=== PATIENT | male | born 1960 | race Caucasian/White ===

== ENCOUNTER → 2017-01-21 | Outpatient (CLI) | payer OTHER ==
--- NOTE | ~2017-01-21 | US135 ---
[facility] A Service of [facility] & [facility] RADIOLOGY TEXT RESULTS PATIENT: NICOLE ANDERSON JR LOCATION: CNIV : 56 UNIT #: [id number] AGE: [address]: Shelley Faith SEX: M ORDER DR: [id number] [facility] [address] [place], [place] [address] [id number] O MR#: [id number] Acc #: [id number] NAME: NICOLE ANDERSON : 1960 SEX: M STUDY DATE/TIME: 01/21/2017 9:54 UNIT: CNIV ROOM: STUDY DESCRIPTION: US U/L Ext Art Study Comp Madan Attending Physician: Shelley Faith A.P.R.N. Referring Physician: Shelley Faith A.P.R.N. Ordering Physician: Shelley Faith A.P.R.N. Primary Care Physician: [facility] MEDICAL IMAGING REPORT This report is preliminary unless electronic signature is present EXAM Lower extremity arterial segmental pressures, 01/21/2017. HISTORY Peripheral artery disease. FINDINGS The right brachial pressure is 149, and the left brachial pressure is 138. The right upper thigh pressure is 149, lower thigh 126, calf 100, dorsalis pedis 85, posterior tibial 94, and toe 58, for an ankle-brachial index of 0.63. Toe-brachial index on the right is 0.39. The left upper thigh pressure is 139, lower thigh 131, calf 97, dorsalis pedis 93, posterior tibial 93, and toe 86, for an ankle-brachial index of 0.62. Toe-brachial index on the left is 0.58. Pulse volume recording tracings demonstrate damping of the signal from the calf level to the ankle level on both sides. IMPRESSION Moderate ischemia of both legs. Ankle-brachial index is 0.63 on the right and 0.62 on the left. 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 These results are not significantly changed, compared to the previous Doppler studies performed on 08/16/2015 when the ankle-brachial index was 0.64 on the right and 0.52 on the left. Dictated by... Fabio Poole M.D. [facility] A Service of [facility] RADIOLOGY TEXT RESULTS PATIENT: NICOLE ANDERSON JR LOCATION: CNIV : 56 UNIT #: [id number] AGE: [address]: Shelley Faith SEX: M ORDER DR: THIS IS AN ELECTRONICALLY VERIFIED REPORT Fabio Poole M.D. at 01/23/2017 7:41 AM ANUJA/alban TD: 01/21/2017 14:09 JOB #: [id number] MEDICAL IMAGING REPORT Page 1 of 1 COPY
--- NOTE | ~2017-01-21 | US37 ---
[facility] A Service of [facility] & [facility] RADIOLOGY TEXT RESULTS PATIENT: NICOLE ANDERSON JR LOCATION: CNIV : 56 UNIT #: [id number] AGE: [address]: Shelley Faith SEX: M ORDER DR: [id number] [facility] [address] [place], [place] [address] [id number] O MR#: [id number] Acc #: [id number] NAME: NICOLE ANDERSON : 1960 SEX: M STUDY DATE/TIME: 01/21/2017 10:20 UNIT: CNIV ROOM: STUDY DESCRIPTION: US Carotid W/Doppler Bilateral Attending Physician: Shelley Faith A.P.R.N. Referring Physician: Shelley Faith A.P.R.N. Ordering Physician: Shelley Faith A.P.R.N. Primary Care Physician: [facility] MEDICAL IMAGING REPORT This report is preliminary unless electronic signature is present EXAM Carotid duplex scan, 01/21/2017. HISTORY Carotid stenosis. Previous left carotid endarterectomy. FINDINGS The right common carotid artery has a small amount of heterogeneous dense plague. There is heterogeneous dense plaque in the right carotid bulb which extends upward in the proximal internal and external carotid arteries. Peak systolic velocity in the mid right internal carotid artery is 97 cm/second with an end-diastolic velocity of 28 cm/second. The ICA/CCA ratio on the right is 1.1. Peak systolic velocity in the right external carotid artery is 226 cm/second. The right vertebral artery is patent with antegrade flow. The left common carotid artery has a small amount of heterogeneous plaque proximal to the previous endarterectomy site. There is mild narrowing at the proximal end of the endarterectomy in the common carotid artery. The left carotid bulb is dilated consistent with previous surgery. The left internal carotid artery is small but there does not appear to be significant recurrent stenosis. There is stenosis at the origin of the external carotid artery by B-mode imaging. Peak systolic velocity in the proximal left internal carotid artery is 131 cm/second with an end-diastolic velocity of 16 cm/second. The ICA/CCA ratio on the left is 2.1. Peak systolic velocity in the left external carotid artery is 88 cm/second. The left vertebral artery is patent with antegrade flow. IMPRESSION A small amount of plaque, but no significant stenosis (less than 50%) in the right internal carotid artery. Significant stenosis of the right external carotid artery. No significant recurrent stenosis (less than STS. [facility] A Service of [facility] RADIOLOGY TEXT RESULTS PATIENT: NICOLE ANDERSON JR LOCATION: CNIV : 56 UNIT #: [id number] AGE: [address]: Shelley Faith SEX: M ORDER DR: 50%) in the left internal carotid artery. No significant stenosis of the left external carotid artery by velocity criteria but it does appear narrowed on B-mode imaging. Patent vertebral arteries bilaterally with antegrade flow. Dictated by... Fabio Poole M.D. THIS IS AN ELECTRONICALLY VERIFIED REPORT Fabio Poole M.D. at 01/23/2017 7:41 AM ANUJA/oliver TD: 01/21/2017 14:17 JOB #: [id number] MEDICAL IMAGING REPORT Page 1 of 1 COPY
== END | disposition home or self-care (01) ==
LOC: CNIV 09:40
DX: I73.9 Peripheral vascular disease, unspecified (principal); I65.21 Occlusion and stenosis of right carotid artery; Z98.890 Other specified postprocedural states
CPT/HCPCS: 93880; 93923